=== PATIENT | male | born 1995 | race Caucasian/White ===

== ENCOUNTER → 2017-07-26 | Outpatient (CLI) | payer BC ==
--- NOTE | 2017-07-26 21:21 | MR ---
EXAMINATION TYPE: MR knee RT wo con DATE OF EXAM: 07/26/2017 COMPARISON: NONE HISTORY: Rt knee pain x 6 mos, possible fall/poor balance, cerebral palsy TECHNIQUE: Multiplanar, multisequence imaging of the right knee is performed without IV contrast. FINDINGS: MEDIAL MENISCUS: There is minimal increased signal within the posterior horn of the medial meniscus. Communication of the articular surface is not clearly identified. This can be compatible some type I internal derangement. LATERAL MENISCUS: Anterior and posterior horns are intact without tear. CRUCIATE LIGAMENTS: The anterior and posterior cruciate ligaments are intact and unremarkable. COLLATERAL LIGAMENTS: The medial collateral ligament and lateral collateral ligament complex are inta ct and unremarkable. EXTENSOR MECHANISM: Visualized quadriceps and patellar tendons are intact. The insertion of the obrien la is only partially visualized in the [id number]. EFFUSION: No significant suprapatellar joint effusion. POPLITEAL CYST: No popliteal/garcia cyst. TRICOMPARTMENT SPACES: Preserved CARTILAGE: Normal BONE MARROW SIGNAL: No focal abnormal marrow signal is appreciated. OTHER: No additional significant abnormality is appreciated. IMPRESSION: Mild increased signal within the substance of the posterior horn medial meniscus compatible some mild internal derangement or type I tear.
== END | disposition home or self-care (01) ==
LOC: RADMRIMAIN 16:35
PROVIDERS: ATTEND Orthopaedic Surgery
DX: M25.561 Pain in right knee (principal)

== ENCOUNTER → 2017-08-22 | Outpatient (CLI) | payer BC ==
[2017-08-22 16:11] LABS: Basophils # (A) 0.1 k/uL (0-0.2); Basophils % (A) 1 %; Eosinophils # (A) 0.7 k/uL (0-0.7); Eosinophils % (A) 8 %; HGB 15.9 gm/dL (13.0-17.5); Lymphocytes # (A) 3.2 k/uL (1.0-4.8); Lymphocytes % (A) 39 %; MCH 29.5 pg (25.0-35.0); MCHC 33.2 g/dL (31.0-37.0); MCV 88.9 fL (80.0-100.0); Mean Platelet Volume 6.5; Monocytes # (A) 0.6 k/uL (0-1.0); Monocytes % (A) 7 %; Neutrophils # (A) 3.5 k/uL (1.3-7.7); Neutrophils % (A) 43 %; Platelet Count 337 k/uL (150-450); RDW 12.2 % (11.5-15.5); WBC 8.2 k/uL (3.8-10.6)
== END | disposition home or self-care (01) ==
LOC: LABPAT 15:25
PROVIDERS: ATTEND Orthopaedic Surgery
DX: Z01.812 Encounter for preprocedural laboratory examination (principal); M23.91 Unspecified internal derangement of right knee
CPT/HCPCS: 36415; 85025

== ENCOUNTER → 2017-09-05 | Day surgery (SDC) | payer BC ==
[2017-09-04 09:57] VITALS: BMI 23.7
--- NOTE | 2017-09-04 16:57 | HP ---
HISTORY AND PHYSICAL REASON FOR ADMISSION: Surgery scheduled for 09/05/2017. HISTORY OF PRESENT ILLNESS: Tr Murdock is a 22-year-old patient seen with progressive right knee pain. Options regarding treatment were discussed with him. He elected to proceed with arthroscopy. Consent was obtained. PAST MEDICAL HISTORY: Asthma. PAST SURGICAL HISTORY: Extraction of wisdom teeth. MEDICATIONS: Daily medications include: Advil, albuterol, Ventolin inhaler. ALLERGIES: None known. SOCIAL HISTORY: Patient denies tobacco use. PHYSICAL EXAMINATION: Evaluation of right knee range of motion 0 to 130 degrees. Tenderness along the medial and lateral joint lines. Positive medial Karina's. Positive lateral Karina's. Ligaments are stable. Hip rotation without pain. Distal neurovascular exam intact. RADIOGRAPHS: Radiographs of the right knee revealed no osseous abnormality. MRI of the right knee revealed a medial meniscal tear. IMPRESSION: 1. Internal derangement, right knee with medial meniscal tear. 2. Asthma. PLAN: Right knee arthroscopy with partial meniscectomy and debridement. Surgery scheduled for 09/05/17. MMODL / IJN: [id number] /
[~2017-09-05] MED LIST: BUPIVACAINE (PF) 0.25% 30 ML VIAL INTRAARTIC ONE; DEXAMETHASONE SOD PHOSPHATE 10 MG/ML 1 ML VIAL IV ONE; HYDROcodone/APAP 5-325MG 1 EACH TAB PO ONE; KETAMINE 10 MG/ML 20 ML VIAL ONE; KETOROLAC 30 MG/ML 1 ML VIAL ONE; LACTATED RINGERS 1,000 ML IV ONE; LACTATED RINGERS 1,000 ML IV SCH; LIDOCAINE 1% 20 ML VIAL (10MG/ML) FOR IV START INTRADERMA PRN; LIDOCAINE 1% INJ 10MG/ML (20 ML MDV) ONE; MIDAZOLAM 2 MG/2 ML VIAL ONE; ONDANSETRON 4 MG/2 ML VIAL IVP ONE; ONDANSETRON 4 MG/2 ML VIAL ONE; PROPOFOL 10 MG/ML 20 ML VIAL IV ONE; SCOPOLAMINE 1.5MG/72HR PATCH TRANSDERM ONE; ceFAZolin IN SWFI 2 GM/20 ML SYRINGE IVP ONE; fentaNYL (PF) 50 MCG/ML 2 ML AMP IV PRN; fentaNYL (PF) 50 MCG/ML 2 ML AMP ONE
[2017-09-05 08:56] VITALS: RESP 16
[2017-09-05 10:28] VITALS: TEMP 97.4
--- NOTE | 2017-09-05 10:31 | P.OP ---
Date of Procedure: 09/05/17 Preoperative Diagnosis: Internal derangement right knee Postoperative Diagnosis: 1. Tear medial and lateral meniscus right knee 2. Reactive synovitis medial and suprapatellar compartments right knee Procedure(s) Performed: 1. Arthroscopic partial medial and lateral meniscectomy right knee 2. Arthroscopic partial synovectomy medial and suprapatellar compartments right knee Anesthesia: MONALISA, local Surgeon: Adam King Estimated Blood Loss (ml): 5 Pathology: none sent Condition: stable Disposition: PACU Indications for Procedure: 22-year-old patient seen with progressive right knee pain. After treatment options were discussed, he elected to proceed with arthroscopy. Operative Findings: see description of procedure Description of Procedure: Patient was taken to the operative suite. Patient underwent a general anesthetic by the department of anesthesia. Patient was given preoperative antibiotics. The right lower extremity was placed in a well-padded arthroscopic leg abrams. The right leg was prepped and draped in the normal sterile orthopedic fashion. A lateral parapatellar and suprapatellar incision was made. Trochars were inserted. Arthroscopy was initiated. Suprapatellar pouch revealed diffuse thick reactive synovitis. The patellofemoral joint appeared to articulate congruently. There was mild grade 1 chondromalacia changes. The scope was guided into the medial gutter. No loose bodies or plica were identified. The scope was then guided into the medial compartment. A medial parapatellar incision was made. Trocar inserted followed by probe. There was a radial tear posterior horn medial meniscus. There was reactive synovitis anteriorly. There was no chondromalacia. I performed a partial medial meniscectomy down to stable tissue. I performed a partial synovectomy. The residual meniscus was stable. Scope and probe were then guided into the intercondylar notch. Cruciates were identified, probed and found to be stable. The scope and probe were then guided into lateral compartment. There was a small radial tear mid body lateral meniscus. No chondromalacia or osteochondral tissue. No reactive synovitis. I performed a partial lateral meniscectomy. The residual meniscus was stable. The scope was in guided back into the suprapatellar compartment. I used the motorized shaver into the suprapatellar compartment. I performed a partial synovectomy. Shaver was removed. I took one more look on the entire knee, no residual debris. Instruments were now removed from the joint. The joint was infiltrated with .25 % Marcaine. Steri-Strips were applied to the portal sites. Sterile dressings were applied. The patient was placed into a RAJWINDER hose. No tourniquet was utilized. The patient was awakened, transferred to a bed and taken to recovery stable satisfactory condition.
[2017-09-05 11:15] VITALS: BP 103/58
[2017-09-05 11:36] VITALS: PULSE 100
== END | disposition home or self-care (01) ==
LOC: OR 08:18
PROVIDERS: ATTEND Orthopaedic Surgery
DX: M23.300 Other meniscus derangements, unspecified lateral meniscus, right knee (principal); M23.321 Other meniscus derangements, posterior horn of medial meniscus, right knee; J45.909 Unspecified asthma, uncomplicated; M65.861 Other synovitis and tenosynovitis, right lower leg; K21.9 Gastro-esophageal reflux disease without esophagitis; F41.9 Anxiety disorder, unspecified; Z79.51 Long term (current) use of inhaled steroids; Z79.52 Long term (current) use of systemic steroids; Z79.899 Other long term (current) drug therapy
CPT/HCPCS: 29880; J2250; J1100; J2405; J2001; J3010; J1885; J2704; J0690

== ENCOUNTER 2018-01-12 18:59 | Emergency (ER) | payer BC ==
[2018-01-12 19:05] VITALS: RESP 18
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
[2018-01-12 20:40] LABS: Amphetamine Screen,Urine Not Detected (NotDetected); Barbiturate Screen,Urine Not Detected (NotDetected); Benzodiazepines Screen,Urine Not Detected (NotDetected); Cocaine Screen,Urine Not Detected (NotDetected); Methadone Screen, Urine Not Detected (NotDetected); Opiate Screen,Urine Not Detected (NotDetected); Oxycodone Screen, Urine Not Detected (NotDetected); Phencyclidine Screen,Urine Not Detected (NotDetected); Tricyclic Antidepressant,Urine Not Detected (NotDetected); Urn Cannabinoid Scrn Not Detected (NotDetected)
[2018-01-12 21:20] VITALS: BP 134/75; PULSE 60; TEMP 98.9
== END 2018-01-12 21:18 | disposition home or self-care (01) ==
LOC: EC 18:59
DX: F32.9 Major depressive disorder, single episode, unspecified (principal); F43.20 Adjustment disorder, unspecified; R45.850 Homicidal ideations; R45.851 Suicidal ideations; J45.909 Unspecified asthma, uncomplicated; F41.9 Anxiety disorder, unspecified; Z79.51 Long term (current) use of inhaled steroids; Z91.010 Allergy to peanuts; Z91.09 Other allergy status, other than to drugs and biological substances
CPT/HCPCS: 80306; 82075; 99285

== ENCOUNTER 2018-04-22 20:21 | Inpatient (IN) | payer BC ==
[2018-04-22] MEDS ORDERED: IPRATROPIUM-ALBUTEROL 3 ML NEB INHALATION STA ×2 (20:38→21:46)
[2018-04-22] MEDS ORDERED: methylPREDNISolone SOD SUCCI 125 MG/2 ML VIAL IV STA (20:38)
[2018-04-22] MEDS ORDERED: SODIUM CHLORIDE 0.9% 1,000 ML IV ONE (20:57)
--- NOTE | 2018-04-22 20:57 | ED ---
SOB HPI - General Source: patient, family, RN notes reviewed, old records reviewed Mode of arrival: wheelchair Limitations: no limitations <Sandra Gutierrez - Last Filed: 04/22/18 22:46> <Concha Michael - Last Filed: 04/23/18 04:08> - General Chief Complaint: Shortness of Breath Stated Complaint: MARIMAR Time Seen by Provider: 04/22/18 20:37 - History of Present Illness Initial Comments: Patient is a 23-year-old male with a significant history of asthma, presents emergency department today for she went asthma exacerbation. Reports tingling for the past 4 hours. He did a breathing treatment times before leaving to come here. Patient states that he had asthma exacerbation 2 weeks ago and what has been off of steroids for the past 10 days. Patient reports that he has been hospitalized in the past for asthma exacerbations. Patient has ever been intubated her head use BiPAP. His crm solution architect is Dr. Boone. (Sandra Gutierrez ) - Related Data Home Medications Medication Instructions Recorded Confirmed Albuterol Sulfate [Ventolin HFA] 1 - 2 puff INHALATION RT-Q6H PRN 03/21/1404/22 Albuterol Nebulized [Ventolin 2.5 mg INHALATION RT-QID PRN 10/17/15 04/22/18 Nebulized] Fluticasone/Salmeterol [Advair 1 puff INHALATION RT-BID 09/05/17 04/22/18 250-50 Diskus] Citalopram Hydrobromide [CeleXA] 20 mg PO DAILY 04/22/18 04/22/18 Ibuprofen [Motrin Ib] 200 mg PO Q4HR PRN 04/22/18 04/22/18 lamoTRIgine [LaMICtal] 25 mg PO DAILY 04/22/18 04/22/18 Allergies Allergy/AdvReac Type Severity Reaction Status Date / Time peanut Allergy Severe Itching Verified 04/22/18 21:12 dog dander Allergy Unknown Verified 04/22/18 21:12 Review of Systems ROS Other: All systems not noted in ROS Statement are negative. <Sandra Gutierrez - Last Filed: 04/22/18 22:46> ROS Other: All systems not noted in ROS Statement are negative. <Concha Michael - Last Filed: 04/23/18 04:08> ROS Statement: Those systems with pertinent positive or pertinent negative responses have been documented in the HPI. Past Medical History Past Medical History: Asthma Additional Past Medical History / Comment(s): Very mild CP Left side History of Any Multi-Drug Resistant Organisms: None Reported Past Surgical History: Orthopedic Surgery Past Anesthesia/Blood Transfusion Reactions: No Reported Reaction Past Psychological History: Anxiety, Depression Smoking Status: Never smoker Past Alcohol Use History: None Reported Past Drug Use History: None Reported - Past Family History Mother Family Medical History: Asthma Father Family Medical History: No Reported History <Sandra Gutierrez - Last Filed: 04/22/18 22:46> General Exam Limitations: no limitations General appearance: alert, in no apparent distress Head exam: Present: atraumatic, normocephalic, normal inspection Eye exam: Present: normal appearance, PERRL, EOMI. Absent: scleral icterus, conjunctival injection, periorbital swelling ENT exam: Present: normal exam, mucous membranes moist Neck exam: Present: normal inspection. Absent: tenderness, meningismus, lymphadenopathy Respiratory exam: Present: wheezes, rhonchi, decreased breath sounds. Absent: normal lung sounds bilaterally, respiratory distress, rales, stridor Cardiovascular Exam: Present: normal rhythm, tachycardia, normal heart sounds. Absent: regular rate, systolic murmur, diastolic murmur, rubs, gallop, clicks GI/Abdominal exam: Present: soft, normal bowel sounds. Absent: distended, tenderness, guarding, rebound, rigid Extremities exam: Present: normal inspection, full ROM, normal capillary refill. Absent: tenderness, pedal edema, joint swelling, calf tenderness Back exam: Present: normal inspection Neurological exam: Present: alert, oriented X3, CN II-XII intact Psychiatric exam: Present: normal affect, normal mood Skin exam: Present: warm, dry, intact, normal color. Absent: rash <Sandra Gutierrez - Last Filed: 04/22/18 22:46> <Concha Michael - Last Filed: 04/23/18 04:08> - General Exam Comments Initial Comments: 23-year-old male. Patient appears in no significant distress. (Sandra Gutierrez) Vital Signs 04/22/18 04/22/18 04/22/18 20:32 20:50 21:01 Temperature 98.3 F Pulse Rate 118 H 98 109 H Pulse Rate [ Right] Respiratory 28 H Rate Blood Pressure 134/89 Blood Pressure [Right Arm] O2 Sat by Pulse 95 Oximetry 04/22/18 04/22/18 04/22/18 21:53 22:09 22:40 Temperature Pulse Rate 104 H 102 H 88 Pulse Rate [ Right] Respiratory 17 Rate Blood Pressure 111/94 Blood Pressure [Right Arm] O2 Sat by Pulse 96 Oximetry 04/23/18 00:22 Temperature Pulse Rate Pulse Rate [ 86 Right] Respiratory 18 Rate Blood Pressure Blood Pressure 125/69 [Right Arm] O2 Sat by Pulse 96 Oximetry Medical Decision Making - Lab Data Result diagrams: 04/22/18 20:32 04/22/18 20:32 - Radiology Data Radiology results: report reviewed <Sandra Gutierrez - Last Filed: 04/22/18 22:46> - Lab Data Result diagrams: 04/22/18 20:32 04/22/18 20:32 <Concha Michael - Last Filed: 04/23/18 04:08> - Medical Decision Making Patient is a 23-year-old male presents emergency department today with chief complaint of asthma exacerbation. He was recently treated for asthma exacerbation 2 week ago and placed on steroids. He's been off them for a week. Patient at this time and has significant wheezing on exam. Start on oxygen, given double DuoNeb treatment IV fluids and steroids. Patient was given a double DuoNeb treatment and continued has significant wheezing. There are treatment was ordered and Patient continues to have wheezing. He has been hospitalized in the past. Patient will be given magnesium. Head is similar to admit the Patient with consults his crm solution architect. He'll be admitted to Dr. ochoa. Dr. Michael discussed case with Dr. ochoa. (Sandra Gutierrez) I personally saw and examined the patient. I reviewed and agree with the mid- level provider findings including all diagnostic interpretations and treatment plans as written unless otherwise stated. I was present for morgan portions of any procedures performed. (Concha Michael) - Lab Data Lab Results 04/22/18 04/22/18 Range/Units 20:32 20:32 WBC 9.2 (3.8-10.6) k/uL RBC 5.19 (4.30-5.90) m/uL Hgb 16.0 (13.0-17.5) gm/dL Hct 47.1 (39.0-53.0) % MCV 90.9 (80.0-100.0) fL MCH 30.8 (25.0-35.0) pg MCHC 33.9 (31.0-37.0) g/dL RDW 12.6 (11.5-15.5) % Plt Count 291 (150-450) k/uL Neutrophils % 35 % Lymphocytes % 38 % Monocytes % 7 % Eosinophils % 17 % Basophils % 1 % Neutrophils # 3.2 (1.3-7.7) k/uL Lymphocytes # 3.5 (1.0-4.8) k/uL Monocytes # 0.7 (0-1.0) k/uL Eosinophils # 1.6 H (0-0.7) k/uL Basophils # 0.1 (0-0.2) k/uL Sodium 142 (137-145) mmol/L Potassium 4.3 (3.5-5.1) mmol/L Chloride 108 H (98-107) mmol/L Carbon Dioxide 23 (22-30) mmol/L Anion Gap 11 mmol/L BUN 13 (9-20) mg/dL Creatinine 0.71 (0.66-1.25) mg/dL Est GFR (CKD-EPI)AfAm >90 (>60 ml/min/1.73 sqM) Est GFR (CKD-EPI)NonAf >90 (>60 ml/min/1.73 sqM) Glucose 106 H (74-99) mg/dL Calcium 9.4 (8.4-10.2) mg/dL - Radiology Data Normal chest x-ray (Sandra Gutierrez) Disposition Is patient prescribed a controlled substance at d/c from ED?: No Time of Disposition: 22:47 <Sandra Gutierrez - Last Filed: 04/22/18 22:46> <Concha Michael - Last Filed: 04/23/18 04:08> Clinical Impression: Asthma with exacerbation, Hypoxemia, Sinus tachycardia Disposition: ADMITTED IP TO THIS HOSP Condition: Stable
[2018-04-22 21:03] LABS: Basophils # (A) 0.1 k/uL (0-0.2); Basophils % (A) 1 %; Eosinophils # (A) 1.6 k/uL (0-0.7); Eosinophils % (A) 17 %; HCT 47.1 % (39.0-53.0); Lymphocytes # (A) 3.5 k/uL (1.0-4.8); Lymphocytes % (A) 38 %; MCH 30.8 pg (25.0-35.0); MCHC 33.9 g/dL (31.0-37.0); MCV 90.9 fL (80.0-100.0); Monocytes # (A) 0.7 k/uL (0-1.0); Monocytes % (A) 7 %; Neutrophils # (A) 3.2 k/uL (1.3-7.7); Neutrophils % (A) 35 %; Platelet Count 291 k/uL (150-450); RBC 5.19 m/uL (4.30-5.90); RDW 12.6 % (11.5-15.5); WBC 9.2 k/uL (3.8-10.6)
[2018-04-22 21:19] LABS: Anion Gap 11 mmol/L; Blood Urea Nitrogen 13 mg/dL (9-20); Calcium 9.4 mg/dL (8.4-10.2); Carbon Dioxide 23 mmol/L (22-30); Chloride 108 mmol/L (98-107); Glucose 106 mg/dL (74-99); Potassium 4.3 mmol/L (3.5-5.1); Sodium 142 mmol/L (137-145)
--- NOTE | 2018-04-22 22:06 | XR ---
EXAMINATION: XR chest 2V DATE AND TIME: 04/22/2018 9:12 PM CLINICAL INDICATION: difficulty breathing TECHNIQUE: PA and lateral COMPARISON: 10/18/2015 FINDINGS: The lungs are clear. The pleural spaces are negative. The cardiac silhouette is not enlarged. The remainder of the mediastinal silhouette is unremarkable. The skeletal structures and soft tissues are negative for acute findings. IMPRESSION: NO ACUTE PROCESS.
[2018-04-22] MEDS ORDERED: MAGNESIUM SULFATE-D5W PMX 1 GM in DEXTROSE/WATER 1 100ML.BAG IVPB STA (22:50)
[2018-04-22] MEDS ORDERED: IBUPROFEN 400 MG TAB PO PRN (22:52)
[2018-04-23] MEDS: methylPREDNISolone SOD SUCCI 125 MG/2 ML VIAL IV SCH ×5 (01:19→23:35)
--- NOTE | 2018-04-23 07:54 | P.HPIM ---
History of Present Illness This is a pleasant 23 years old male with past medical history of asthma since and anxiety/depression on psychiatric medication including Lamictal with no history of seizure. He presents with progressive dyspnea on and off over the last 2 weeks which got like really bad yesterday for 4 hours with no associated chest pain or coughing. Patient inhalers could not control his symptoms so he decided to come to the emergency room. Patient most likely found to have acute asthma exacerbation. And he was started on therapy including steroids. This morning he looks better. Patient is not on home oxygen and has not steroid dependent. And he follows up with Dr. Boone as an outpatient. Review of Systems CONSTITUTIONAL: No fever, no malaise, no fatigue. HEENT: No recent visual problems or hearing problems. Denied any sore throat. CARDIOVASCULAR: No orthopnea, PND, no palpitations, no syncope. PULMONARY: No shortness of breath, no cough, no hemoptysis. GASTROINTESTINAL: No diarrhea, no nausea, no vomiting, no abdominal pain. Normoactive bowel sounds. NEUROLOGICAL: No headaches, no weakness, no numbness. HEMATOLOGICAL: Denies any bleeding or petechiae. GENITOURINARY: Denies any burning micturition, frequency, or urgency. MUSCULOSKELETAL/RHEUMATOLOGICAL: Denies any joint pain, swelling, or any muscle pain. ENDOCRINE: Denies any polyuria or polydipsia. GENERAL: The patient is alert and oriented x3, not in any acute distress. Well developed, well nourished. HEENT: Pupils are round and equally reacting to light. EOMI. No scleral icterus. No conjunctival pallor. Normocephalic, atraumatic. No pharyngeal erythema. No thyromegaly. CARDIOVASCULAR: S1 and S2 present. No murmurs, rubs, or gallops. -PULMONARY: Chest is clear to auscultation, no crackles. bilateral scattered wheezing with prolonged expiration ABDOMEN: Soft, nontender, nondistended, normoactive bowel sounds. No palpable organomegaly. MUSCULOSKELETAL: No joint swelling or deformity. EXTREMITIES: No cyanosis, clubbing, or pedal edema. NEUROLOGICAL: Gross neurological examination did not reveal any focal deficits. SKIN: No rashes. Past Medical History Past Medical History: Asthma Additional Past Medical History / Comment(s): Very mild CP Left side History of Any Multi-Drug Resistant Organisms: None Reported Past Surgical History: Orthopedic Surgery Additional Past Surgical History / Comment(s): R knee surgery Past Anesthesia/Blood Transfusion Reactions: No Reported Reaction Past Psychological History: Anxiety, Depression Smoking Status: Never smoker Past Alcohol Use History: None Reported Past Drug Use History: None Reported - Past Family History Mother Family Medical History: Asthma Father Family Medical History: No Reported History Medications and Allergies Home Medications Medication Instructions Recorded Confirmed Type Albuterol Sulfate [Ventolin HFA] 1 - 2 puff INHALATION RT-Q6H PRN 03/21/1404/22 History Albuterol Nebulized [Ventolin 2.5 mg INHALATION RT-QID PRN 10/17/15 04/22/18 History Nebulized] Fluticasone/Salmeterol [Advair 1 puff INHALATION RT-BID 09/05/17 04/22/18 History 250-50 Diskus] Citalopram Hydrobromide [CeleXA] 20 mg PO DAILY 04/22/18 04/22/18 History Ibuprofen [Motrin Ib] 200 mg PO Q4HR PRN 04/22/18 04/22/18 History lamoTRIgine [LaMICtal] 25 mg PO DAILY 04/22/18 04/22/18 History Allergies Allergy/AdvReac Type Severity Reaction Status Date / Time peanut Allergy Severe Itching Verified 04/22/18 21:12 dog dander Allergy Unknown Verified 04/22/18 21:12 Physical Exam Vitals: Vital Signs Temp Pulse Pulse Resp BP BP Pulse Ox 04/23/18 06:05 97.5 F L 78 18 116/55 96 04/23/18 00:22 86 18 125/69 96 04/22/18 22:40 88 17 111/94 96 04/22/18 22:09 102 H 04/22/18 21:53 104 H 04/22/18 21:01 109 H 04/22/18 20:50 98 04/22/18 20:32 98.3 F 118 H 28 H 134/89 95 Intake and Output 04/22/18 04/23/18 04/23/18 22:59 06:59 14:59 Other: # Voids 2 Weight 79.379 kg Results CBC & Chem 7: 04/22/18 20:32 04/22/18 20:32 Labs: Abnormal Lab Results - Last 24 Hours (Table) 04/22/18 04/22/18 Range/Units 20:32 20:32 Eosinophils # 1.6 H (0-0.7) k/uL Chloride 108 H (98-107) mmol/L Glucose 106 H (74-99) mg/dL Thrombosis Risk Factor Assmnt - Choose All That Apply Any of the Below Risk Factors Present?: No Other Risk Factors: No Other congenital or acquired thrombophilia - If yes, enter type in comment: No Thrombosis Risk Factor Assessment Level: Very Low Risk Assessment and Plan Assessment: Acute asthma exacerbation Anxiety Plan: This is a pleasant 23 years old male who presents with asthma exacerbation. Continue with steroids and oxygen therapy. Call pulmonary consult. Labs and medication were resumed. Continue same treatment. Continue with symptomatic treatment. Resume home medication. Monitor lytes and vitals. DVT and GI prophylaxis. Further recommendationsof the clinical course of the patient DVT prophylaxis: Subcutaneous heparin GI Prophylaxis: Pepcid Prognosis is guarded
[2018-04-23] MEDS ORDERED: NON-FORMULARY DRUG (Fluticasone/Salmeterol [Advair 250-50 Diskus] 1 PUFF) INHALATION SCH (08:00)
[2018-04-23] MEDS: HEPARIN SODIUM,PORCINE 5,000 UNIT/ML 1 ML VIAL SQ SCH ×2 (08:15→20:19)
[2018-04-23] MEDS: guaiFENesin 600 MG TABLET.ER PO SCH ×2 (08:16→20:18)
[2018-04-23] MEDS: CITALOPRAM HYDROBROMIDE 20 MG TAB PO SCH (08:16)
[2018-04-23] MEDS: lamoTRIgine 25 MG TAB PO SCH (08:16)
[2018-04-23] MEDS: IPRATROPIUM-ALBUTEROL 3 ML NEB INHALATION PRN ×3 (08:30→20:43)
[2018-04-23] MEDS: SYMBICORT 80-4.5 MCG INHALER INHALATION SCH ×2 (08:30→20:44)
[2018-04-23] MEDS ORDERED: FAMOTIDINE 20 MG/2 ML VIAL IV SCH (09:00)
--- NOTE | 2018-04-23 13:25 | P.CNPUL ---
History of Present Illness Consult date: 04/23/18 Reason for consult: dyspnea, cough, asthma Chief complaint: Acute asthma exacerbation History of present illness: Pulmonary consult dated 04/23/2018 23-year-old male who I see in my office. He has a history of mild cerebral palsy and chronic bronchial asthma. His asthma is usually well controlled. Over the last couple days, he states that his asthma has gotten much worse. He complains of shortness of breath chest tightness wheezing cough and chest congestion. In addition, he is coughing up a small amount of clear to white phlegm. No fever chills chest pain chest discomfort and nausea vomiting or diarrhea. I see him about every 6 months in the office. He was hospitalized at least one previous time for his asthma. He states he is using his medications as prescribed. He does not skip medications are skipped doses. He apparently started using a short acting beta agonist very frequently which still limiting needed to come in to be seen. He is feeling better today than he was yesterday. His only major medical problems include asthma, mild cerebral palsy, anxiety and depression. He is a lifelong nonsmoker. Review of Systems A 14 point review of system is positive for shortness of breath tightness wheezing cough and minimal phlegm production. Past Medical History Past Medical History: Asthma Additional Past Medical History / Comment(s): Very mild CP Left side History of Any Multi-Drug Resistant Organisms: None Reported Past Surgical History: Orthopedic Surgery Additional Past Surgical History / Comment(s): R knee surgery Past Anesthesia/Blood Transfusion Reactions: No Reported Reaction Past Psychological History: Anxiety, Depression Smoking Status: Never smoker Past Alcohol Use History: None Reported Past Drug Use History: None Reported - Past Family History Mother Family Medical History: Asthma Father Family Medical History: No Reported History Medications and Allergies Home Medications Medication Instructions Recorded Confirmed Type Albuterol Sulfate [Ventolin HFA] 1 - 2 puff INHALATION RT-Q6H PRN 03/21/1404/22 History Albuterol Nebulized [Ventolin 2.5 mg INHALATION RT-QID PRN 10/17/15 04/22/18 History Nebulized] Fluticasone/Salmeterol [Advair 1 puff INHALATION RT-BID 09/05/17 04/22/18 History 250-50 Diskus] Citalopram Hydrobromide [CeleXA] 20 mg PO DAILY 04/22/18 04/22/18 History Ibuprofen [Motrin Ib] 200 mg PO Q4HR PRN 04/22/18 04/22/18 History lamoTRIgine [LaMICtal] 25 mg PO DAILY 04/22/18 04/22/18 History Allergies Allergy/AdvReac Type Severity Reaction Status Date / Time peanut Allergy Severe Itching Verified 04/22/18 21:12 dog dander Allergy Unknown Verified 04/22/18 21:12 Physical Exam Osteopathic Statement: *. No significant issues noted on an osteopathic structural exam other than those noted in the History and Physical/Consult. Vitals: Vital Signs Temp Pulse Pulse Resp BP BP Pulse Ox 04/23/18 12:15 104 H 04/23/18 12:03 100 04/23/18 08:50 18 04/23/18 08:47 102 H 04/23/18 08:33 94 95 04/23/18 06:05 97.5 F L 78 18 116/55 96 04/23/18 00:22 86 18 125/69 96 04/22/18 22:40 88 17 111/94 96 04/22/18 22:09 102 H 04/22/18 21:53 104 H 04/22/18 21:01 109 H 04/22/18 20:50 98 04/22/18 20:32 98.3 F 118 H 28 H 134/89 95 Intake and Output 04/22/18 04/23/18 04/23/18 22:59 06:59 14:59 Other: Voiding Method Toilet # Voids 2 Weight 79.379 kg No acute distress, oriented 3. Nasal O2 in place. No audible wheezing. No use of accessory muscles. HEENT examination is grossly unremarkable. Mucous membranes are moist. No oral lesions. Neck supple. Full range of motion. No adenopathy thyromegaly or neck vein distention. Cardiovascular examination reveals regular rhythm rate. S1-S2 normal. No S3 or S4. No discernible murmur noted. Lungs reveal bilateral expiratory wheezes. A few scattered rhonchi. No crackles. Breath sounds equal bilaterally. There is prolongation on forced maneuver.. Abdomen soft bowel sounds are heard. No masses or tenderness. Extremities are intact. No cyanosis clubbing or edema. Skin is without rash or lesion. Neurologic examination is brief but nonfocal. Results - Laboratory Findings CBC and BMP: 04/22/18 20:32 04/22/18 20:32 Abnormal lab findings: Abnormal Labs 04/22/18 04/22/18 20:32 20:32 Eosinophils # 1.6 H Chloride 108 H Glucose 106 H - Diagnostic Findings Chest x-ray: report reviewed, image reviewed (Chest x-ray, labs and medications are reviewed.) Assessment and Plan Assessment: Assessment Acute exacerbation of moderate/persistent chronic bronchial asthma, likely triggered by an upper respiratory tract infection and/or the rather History of mild cerebral palsy History of anxiety/depression Plan: Plan dated 04/23/2018 The patient's medications are reviewed. He should be on DuoNeb 4 times a day and when necessary. In addition, he needs a long-acting beta agonist and inhaled corticosteroid. In addition, the patient should be on systemic corticosteroids as well as oral antibiotics. The patient could likely be considered for discharge later today or tomorrow. He should follow with me in the office. Labs x-rays a medications are reviewed. Chest x-ray shows no acute infiltrate. White count 9.2 hemoglobin and hematocrit and platelet count all normal. Sodium and potassium are normal. Chlorides 108, with the rest of the comprehensive metabolic profile being normal. Time with Patient: Greater than 30
[2018-04-23] MEDS: FAMOTIDINE 20 MG TAB PO SCH (20:46)
[2018-04-24] MEDS: methylPREDNISolone SOD SUCCI 125 MG/2 ML VIAL IV SCH ×2 (05:59→12:34)
[2018-04-24 07:37] VITALS: BP 112/55; RESP 20; TEMP 98.3
[2018-04-24] MEDS: SYMBICORT 80-4.5 MCG INHALER INHALATION SCH (07:38)
[2018-04-24] MEDS: IPRATROPIUM-ALBUTEROL 3 ML NEB INHALATION PRN ×2 (07:38→11:37)
[2018-04-24 07:42] VITALS: PULSE 100
[2018-04-24] MEDS: guaiFENesin 600 MG TABLET.ER PO SCH (08:45)
[2018-04-24] MEDS: HEPARIN SODIUM,PORCINE 5,000 UNIT/ML 1 ML VIAL SQ SCH (08:45)
[2018-04-24] MEDS: FAMOTIDINE 20 MG TAB PO SCH (08:45)
[2018-04-24] MEDS: CITALOPRAM HYDROBROMIDE 20 MG TAB PO SCH (08:45)
[2018-04-24] MEDS: lamoTRIgine 25 MG TAB PO SCH (08:45)
[2018-04-24] MEDS ORDERED: AZITHROMYCIN 500 MG TAB PO SCH (09:00)
--- NOTE | 2018-04-24 10:08 | P.PN ---
Subjective Progress Note Date: 04/24/18 Principal diagnosis: Acute exacerbation of moderate/persistent chronic bronchial asthma Pulmonary consult dated 04/23/2018 23-year-old male who I see in my office. He has a history of mild cerebral palsy and chronic bronchial asthma. His asthma is usually well controlled. Over the last couple days, he states that his asthma has gotten much worse. He complains of shortness of breath chest tightness wheezing cough and chest congestion. In addition, he is coughing up a small amount of clear to white phlegm. No fever chills chest pain chest discomfort and nausea vomiting or diarrhea. I see him about every 6 months in the office. He was hospitalized at least one previous time for his asthma. He states he is using his medications as prescribed. He does not skip medications are skipped doses. He apparently started using a short acting beta agonist very frequently which still limiting needed to come in to be seen. He is feeling better today than he was yesterday. His only major medical problems include asthma, mild cerebral palsy, anxiety and depression. He is a lifelong nonsmoker. On 04/24/2018 patient seen in follow-up. Patient is feeling much better today, his lung sounds are essentially clear, no wheezes, no rhonchi, no rales. Apparently on 2 L per nasal cannula, his pulse ox is 94%, he is afebrile, vital signs are stable, patient has responded quite favorably and fast to systemic IV steroids, Symbicort, nebulized bronchodilators, and Zithromax. No chest tightness, no wheezes, no fever, no chills. Dissipate discharge home today. Objective - Vital Signs Vital signs: Vital Signs Temp 98.3 F 04/24/18 07:34 Pulse 100 04/24/18 07:55 Resp 20 04/24/18 07:38 BP 112/55 04/24/18 07:34 Pulse Ox 94 L 04/24/18 07:34 Intake & Output 04/23/18 04/24/18 04/24/18 18:59 06:59 18:59 Intake Total 500 Balance 500 Intake: Oral 500 Other: Voiding Method Toilet Toilet # Voids 2 3 2 - Exam No acute distress, oriented 3. Nasal O2 in place. No audible wheezing. No use of accessory muscles. HEENT examination is grossly unremarkable. Mucous membranes are moist. No oral lesions. Neck supple. Full range of motion. No adenopathy thyromegaly or neck vein distention. Cardiovascular examination reveals regular rhythm rate. S1-S2 normal. No S3 or S4. No discernible murmur noted. Lungs reveal clear breath sounds. No crackles. Breath sounds equal bilaterally. Abdomen soft bowel sounds are heard. No masses or tenderness. Extremities are intact. No cyanosis clubbing or edema. Skin is without rash or lesion. Neurologic examination is brief but nonfocal. - Labs CBC & Chem 7: 04/22/18 20:32 04/22/18 20:32 Assessment and Plan Plan: Acute exacerbation of moderate/persistent chronic bronchial asthma, likely triggered by an upper respiratory tract infection and/or the rather History of mild cerebral palsy History of anxiety/depression Plan: Patient is improving, no chest tightness, no worsening shortness of breath, lung sounds are essentially clear to auscultation, no fever, no chills, no cough. From pulmonary perspective patient is stable for discharge home today on prednisone taper, short course of outpatient antibiotic therapy, and his maintenance inhalers. Follow up with Dr. Boone in the office in one week I performed a history & physical examination of the patient and discussed their management with my nurse practitioner, Brenda Cleaning. I reviewed the nurse practitioner's note and agree with the documented findings and plan of care. Lung sounds are positive for clear breath. The findings and the impression was discussed with the patient. I attest to the documentation by the nurse practitioner. Time with Patient: Less than 30
--- NOTE | 2018-04-24 19:16 | P.DS ---
Providers Date of admission: 04/22/18 22:20 Attending physician: Stalin Gonzalez Consults: 04/22/18 22:50 Consult Physician Stat Consulting Provider: Laron Boone Reason/Comments: Asthma exacerbation Do you want consulting provider notified?: Yes Primary care physician: Wilbert Westerly Hospital Course: This is a pleasant 23 years old male with past medical history of asthma since and anxiety/depression on psychiatric medication including Lamictal with no history of seizure. He presents with progressive dyspnea on and off over the last 2 weeks which got like really bad yesterday for 4 hours with no associated chest pain or coughing. Patient inhalers could not control his symptoms so he decided to come to the emergency room. Patient most likely found to have acute asthma exacerbation. And he was started on therapy including steroids, breathing treatment and oxygen. Patient has been evaluated by pulmonary team who admitted antibiotic and updated his medication. Patient showed interval improvement and on the day of discharge his dyspnea was minimal. Denies chest pain and his cough is improving. Patient himself felt he is ready to be discharged. Patient was cleared by pulmonary team for discharge. Problems and management plan was discussed with the patient and he verbalized understanding and acceptance. Patient is found stable and can be discharged home however he needs follow-up as an outpatient. he agrees to follow up as outpt with pulmonary and pcp. pt was instructed that his 6 cats he has at home may play a significant role in his asthma exacerbation and advised to stay away from them. physical exam Gen.: Patient alert awake and oriented X 3, NOT IN DISTRESS CVS: s1-s2, RRR, no murmur CHEST:bilateral CTA, no wheezing or crepitation Abdomen: Soft, no tenderness, no distention, positive bowel sounds Extremities: No leg edema or induration Time spent more than 35 minutes Patient Condition at Discharge: Stable Plan - Discharge Summary Discharge Rx Participant: No New Discharge Prescriptions: New Doxycycline [Vibramycin] 100 mg PO BID 4 Days #8 capsule Famotidine [Pepcid] 20 mg PO BID #14 tab guaiFENesin [Mucinex] 1,200 mg PO Q12HR 3 Days #6 tablet.er predniSONE 10 mg PO DIRECTED #21 tab Continue Albuterol Sulfate [Ventolin HFA] 1 - 2 puff INHALATION RT-Q6H PRN PRN Reason: Shortness Of Breath Albuterol Nebulized [Ventolin Nebulized] 2.5 mg INHALATION RT-QID PRN PRN Reason: Shortness Of Breath Fluticasone/Salmeterol [Advair 250-50 Diskus] 1 puff INHALATION RT-BID lamoTRIgine [LaMICtal] 25 mg PO DAILY Citalopram Hydrobromide [CeleXA] 20 mg PO DAILY Discontinued Ibuprofen [Motrin Ib] 200 mg PO Q4HR PRN PRN Reason: Pain Discharge Medication List Albuterol Sulfate [Ventolin HFA] 1 - 2 puff INHALATION RT-Q6H PRN 03/21/14 [ History] Albuterol Nebulized [Ventolin Nebulized] 2.5 mg INHALATION RT-QID PRN 10/17/15 [ History] Fluticasone/Salmeterol [Advair 250-50 Diskus] 1 puff INHALATION RT-BID 09/05/17 [History] Citalopram Hydrobromide [CeleXA] 20 mg PO DAILY 04/22/18 [History] lamoTRIgine [LaMICtal] 25 mg PO DAILY 04/22/18 [History] Doxycycline [Vibramycin] 100 mg PO BID 4 Days #8 capsule 04/24/18 [Rx] Famotidine [Pepcid] 20 mg PO BID #14 tab 04/24/18 [Rx] guaiFENesin [Mucinex] 1,200 mg PO Q12HR 3 Days #6 tablet.er 04/24/18 [Rx] predniSONE 10 mg PO DIRECTED #21 tab 04/24/18 [Rx] Follow up Appointment(s)/Referral(s): Wilbert Romeo MD [Primary Care Provider] - 04/28/18 2:20 pm Laron Boone DO [Doctor of Osteopathic Medicine] - 1 Week (office closed at time od d/c. please call to make appt) Activity/Diet/Wound Care/Special Instructions: resume your previous diet activity as tolerated Discharge Disposition: HOME SELF-CARE
== END 2018-04-24 13:12 | disposition home or self-care (01) | DRG 203 ==
LOC: EC 20:21 → 4MS4W 22:20
PROVIDERS: ADMIT Hospitalist; ATTEND Hospitalist
DX: J45.41 Moderate persistent asthma with (acute) exacerbation (principal); F32.9 Major depressive disorder, single episode, unspecified; F41.9 Anxiety disorder, unspecified; G80.9 Cerebral palsy, unspecified; R09.02 Hypoxemia; Z79.899 Other long term (current) drug therapy; Z82.5 Family history of asthma and other chronic lower respiratory diseases; Z79.1 Long term (current) use of non-steroidal anti-inflammatories (NSAID); Z91.010 Allergy to peanuts; Z91.048 Other nonmedicinal substance allergy status
CPT/HCPCS: 36415; 71046; 80048; 85025; 94640; 94760; 96361; 96365; 96375; 99285

== ENCOUNTER 2018-05-05 01:57 | Emergency (ER) | payer BC ==
[2018-05-05] MEDS ORDERED: IPRATROPIUM-ALBUTEROL 3 ML NEB INHALATION STA ×2 (02:15→03:00)
--- NOTE | 2018-05-05 02:15 | ED ---
SOB HPI - General Chief Complaint: Shortness of Breath Stated Complaint: MARIMAR, Asthma Time Seen by Provider: 05/05/18 02:14 Source: patient Mode of arrival: wheelchair Limitations: no limitations - History of Present Illness Initial Comments: Marni is a 23-year-old male with a history of very severe asthma with a recent admission to the hospital for asthma exacerbation who returns today for asthma exacerbation. Patient reports that he has had wheezing and tightness which improves only transiently with his home nebulizer. Patient reports he's had persistent shortness of breath throughout the afternoon, she didn't want to wait to come to the ER but he did last time because he wanted to avoid admission. Patient denies any associated fevers, chills nausea or vomiting. He reports a wheezy nonproductive cough which is similar to previous episodes of asthma exacerbation. He's been compliant with his home medications he has followed with his parimutuel clerk. - Related Data Home Medications Medication Instructions Recorded Confirmed Albuterol Sulfate [Ventolin HFA] 1 - 2 puff INHALATION RT-Q6H PRN 03/21/1404/22 Albuterol Nebulized [Ventolin 2.5 mg INHALATION RT-QID PRN 10/17/15 04/22/18 Nebulized] Fluticasone/Salmeterol [Advair 1 puff INHALATION RT-BID 09/05/17 04/22/18 250-50 Diskus] Citalopram Hydrobromide [CeleXA] 20 mg PO DAILY 04/22/18 04/22/18 lamoTRIgine [LaMICtal] 25 mg PO DAILY 04/22/18 04/22/18 Previous Rx's Medication Instructions Recorded Doxycycline [Vibramycin] 100 mg PO BID 4 Days #8 capsule 04/24/18 Famotidine [Pepcid] 20 mg PO BID #14 tab 04/24/18 guaiFENesin [Mucinex] 1,200 mg PO Q12HR 3 Days #6 04/24/18 tablet.er predniSONE 10 mg PO DIRECTED #21 tab 04/24/18 Allergies Allergy/AdvReac Type Severity Reaction Status Date / Time peanut Allergy Severe Itching Verified 04/22/18 21:12 dog dander Allergy Unknown Verified 04/22/18 21:12 Review of Systems ROS Statement: Those systems with pertinent positive or pertinent negative responses have been documented in the HPI. ROS Other: All systems not noted in ROS Statement are negative. Past Medical History Past Medical History: Asthma History of Any Multi-Drug Resistant Organisms: None Reported Past Surgical History: Orthopedic Surgery Additional Past Surgical History / Comment(s): R knee surgery Past Anesthesia/Blood Transfusion Reactions: No Reported Reaction Past Psychological History: Anxiety, Depression Smoking Status: Never smoker Past Alcohol Use History: None Reported Past Drug Use History: None Reported - Past Family History Mother Family Medical History: Asthma Father Family Medical History: No Reported History General Exam - General Exam Comments Initial Comments: Physical Exam GENERAL: Patient is well-developed and well-nourished. Patient mild respiratory distress upon arrival HENT: Normocephalic, Atraumatic. EYES: PERRL, EOMI PULMONARY: Tachypnea, increased work of breathing, wheezing in all lung may CARDIOVASCULAR: Tachycardic regular ABDOMEN: Soft and nontender with normal bowel sounds. SKIN: Skin is clear with no lesions or rashes and otherwise unremarkable. : Deferred NEUROLOGIC: Patient is alert and oriented x3. Moving all extremities spontaneously MUSCULOSKELETAL: Normal extremities with adequate strength and full range of motion. No lower extremity swelling or edema. No calf tenderness. PSYCHIATRIC: Normal psychiatric evaluation. Limitations: no limitations Limitations: no limitations Course Vital Signs 05/05/18 05/05/18 05/05/18 01:59 02:18 02:25 Temperature 98.4 F Pulse Rate 102 H 84 82 Respiratory 28 H 24 22 Rate Blood Pressure O2 Sat by Pulse 94 L Oximetry 05/05/18 05/05/18 05/05/18 04:50 05:02 05:52 Temperature 97.9 F Pulse Rate 80 83 98 Respiratory 20 20 20 Rate Blood Pressure 128/74 O2 Sat by Pulse 99 Oximetry Medical Decision Making - Medical Decision Making Patient was seen and evaluated history is obtained from the patient review of medical record as well as recall of my previous interactions with this patient with a history of severe asthma, coming in today for persistent wheezing despite using his nebulizers and rescue inhalers as prescribed Patient in mild respiratory distress is having an asthma exacerbation Labs and imaging were ordered Patient was reevaluated after DuoNeb's and is feeling quite well, and is stable for discharge home patient agrees and would like to be discharged Turn parameters were discussed, patient will follow up with his parimutuel clerk, all questions pertaining to care answered and patient discharged home in stable condition - Lab Data Result diagrams: 05/05/18 03:31 05/05/18 03:31 Lab Results 05/05/18 05/05/18 Range/Units 03:31 03:31 WBC 15.6 H (3.8-10.6) k/uL RBC 5.40 (4.30-5.90) m/uL Hgb 16.8 (13.0-17.5) gm/dL Hct 48.5 (39.0-53.0) % MCV 89.9 (80.0-100.0) fL MCH 31.1 (25.0-35.0) pg MCHC 34.6 (31.0-37.0) g/dL RDW 12.5 (11.5-15.5) % Plt Count 359 (150-450) k/uL Neutrophils % 66 % Lymphocytes % 21 % Monocytes % 6 % Eosinophils % 6 % Basophils % 0 % Neutrophils # 10.3 H (1.3-7.7) k/uL Lymphocytes # 3.2 (1.0-4.8) k/uL Monocytes # 0.9 (0-1.0) k/uL Eosinophils # 1.0 H (0-0.7) k/uL Basophils # 0.1 (0-0.2) k/uL Sodium 138 (137-145) mmol/L Potassium 4.8 (3.5-5.1) mmol/L Chloride 104 (98-107) mmol/L Carbon Dioxide 23 (22-30) mmol/L Anion Gap 11 mmol/L BUN 16 (9-20) mg/dL Creatinine 0.74 (0.66-1.25) mg/dL Est GFR (CKD-EPI)AfAm >90 (>60 ml/min/1.73 sqM) Est GFR (CKD-EPI)NonAf >90 (>60 ml/min/1.73 sqM) Glucose 118 H (74-99) mg/dL Calcium 10.2 (8.4-10.2) mg/dL Magnesium 2.0 (1.6-2.3) mg/dL Total Bilirubin 0.5 (0.2-1.3) mg/dL AST 29 (17-59) U/L ALT 37 (21-72) U/L Alkaline Phosphatase 50 (38-126) U/L Total Protein 7.6 (6.3-8.2) g/dL Albumin 4.6 (3.5-5.0) g/dL Disposition Clinical Impression: Asthma, Asthma with exacerbation Disposition: HOME SELF-CARE Condition: Stable Instructions: Asthma (ED) Is patient prescribed a controlled substance at d/c from ED?: No Referrals: Wilbert Romeo MD [Primary Care Provider] - 1-2 days Laron Boone DO [Doctor of Osteopathic Medicine] - 1-2 days
[2018-05-05] MEDS ORDERED: MAGNESIUM SULFATE-D5W PMX 1 GM in DEXTROSE/WATER 1 100ML.BAG IVPB ONE (03:00)
--- NOTE | 2018-05-05 03:26 | XR ---
EXAMINATION TYPE: XR chest 2V DATE OF EXAM: 05/05/2018 COMPARISON: 04/22/2018 HISTORY: Short of breath TECHNIQUE: Frontal and lateral views of the chest are obtained. FINDINGS: Heart and mediastinum are normal. Lungs are clear. Diaphragm is normal. Bony thorax appear s normal. IMPRESSION: Normal chest. No change.
[2018-05-05 04:23] LABS: Albumin 4.6 g/dL (3.5-5.0); Anion Gap 11 mmol/L; Blood Urea Nitrogen 16 mg/dL (9-20); Calcium 10.2 mg/dL (8.4-10.2); Carbon Dioxide 23 mmol/L (22-30); Chloride 104 mmol/L (98-107); Glucose 118 mg/dL (74-99); Sodium 138 mmol/L (137-145); Total Bilirubin 0.5 mg/dL (0.2-1.3); Total Protein 7.6 g/dL (6.3-8.2)
[2018-05-05 04:30] LABS: ALT 37 U/L (21-72); AST 29 U/L (17-59); Alkaline Phosphatase 50 U/L (38-126); Potassium 4.8 mmol/L (3.5-5.1)
[2018-05-05 04:50] VITALS: RESP 20
[2018-05-05 04:55] LABS: Basophils # (A) 0.1 k/uL (0-0.2); Basophils % (A) 0 %; Eosinophils % (A) 6 %; HCT 48.5 % (39.0-53.0); HGB 16.8 gm/dL (13.0-17.5); Lymphocytes # (A) 3.2 k/uL (1.0-4.8); Lymphocytes % (A) 21 %; MCH 31.1 pg (25.0-35.0); MCHC 34.6 g/dL (31.0-37.0); MCV 89.9 fL (80.0-100.0); Mean Platelet Volume 6.5; Monocytes # (A) 0.9 k/uL (0-1.0); Monocytes % (A) 6 %; Neutrophils # (A) 10.3 k/uL (1.3-7.7); Neutrophils % (A) 66 %; Platelet Count 359 k/uL (150-450); RDW 12.5 % (11.5-15.5); WBC 15.6 k/uL (3.8-10.6)
[2018-05-05 05:53] VITALS: BP 128/74; PULSE 98; TEMP 97.9
== END 2018-05-05 05:53 | disposition home or self-care (01) ==
LOC: EC 01:57
DX: J45.901 Unspecified asthma with (acute) exacerbation (principal); F32.9 Major depressive disorder, single episode, unspecified; F41.9 Anxiety disorder, unspecified; Z79.51 Long term (current) use of inhaled steroids; Z79.899 Other long term (current) drug therapy; Z91.010 Allergy to peanuts; Z91.09 Other allergy status, other than to drugs and biological substances
CPT/HCPCS: 99285; 36415; 94640 ×2; 80053; 83735; 85025; 71046; 96365; J3475

== ENCOUNTER → 2018-06-19 | Outpatient (CLI) | payer BC ==
[2018-06-20 05:34] LABS: Clam IgE <0.10 kU/L; Scallop IgE <0.10 kU/L; Shrimp IgE <0.10 kU/L; Walnut IgE (Food) <0.10 kU/L
[2018-06-20 05:35] LABS: Egg White IgE <0.10 kU/L; Soybean IgE 0.48 kU/L
[2018-06-20 05:36] LABS: Codfish IgE <0.10 kU/L
[2018-06-20 05:37] LABS: Peanut IgE 6.52 kU/L
[2018-06-20 13:41] LABS: Alt. alternata IgE Class CLASS III; Alternaria alternata IgE 5.62 kU/L (<0.35); Asperg. fumagatus IgE 1.83 kU/L (<0.35); Asperg. fumagatus IgE Class CLASS II; Bermuda Grass IgE <0.35 kU/L (<0.35); Birch(Com.Silvr) IgE <0.35 kU/L (<0.35); Birch(Com.Silvr) IgE Class CLASS 0; Cat Epith & Dander IgE Class CLASS IV; Clad herbarum IgE 1.09 kU/L (<0.35); Cockroach IgE <0.35 kU/L (<0.35); Cottonwood IgE <0.35 kU/L (<0.35); Dermato. Pteronyssinus IgE 1.65 kU/L (<0.35); Dermato. farinae IgE 1.01 kU/L (<0.35); Dermato. farinae IgE Class CLASS II; Dog Dander IgE 4.81 kU/L (<0.35); Elm IgE 0.39 kU/L (<0.35); Maple (Box Elder) IgE 0.45 kU/L (<0.35); Maple (Box Elder) IgE Class CLASS I; Mountain Cedar IgE <0.35 kU/L (<0.35); Mountain Cedar IgE Class CLASS 0; Mouse Urine IgE Class CLASS 0; Nettle IgE <0.35 kU/L (<0.35); Nettle IgE Class CLASS 0; Oak IgE <0.35 kU/L (<0.35); Penicillium notatum IgE Class CLASS I; Rough Marshelder IgE 0.36 kU/L (<0.35); Rough Marshelder IgE Class CLASS I; Timothy Grass IgE <0.35 kU/L (<0.35); White Ash IgE Class CLASS II
== END | disposition home or self-care (01) ==
LOC: LABWHC1 15:20
PROVIDERS: ATTEND Internal Medicine Critical Care Medicine
DX: R05 Cough (principal)
CPT/HCPCS: 36415; 82785; 85008; 86003

== ENCOUNTER 2018-11-18 13:57 | Emergency (ER) | payer BC ==
[2018-11-18] MEDS ORDERED: SODIUM CHLORIDE 0.9% 1,000 ML BAG ONE (14:00)
[2018-11-18] MEDS ORDERED: KETOROLAC 30 MG/ML 1 ML VIAL ONE (14:00)
[2018-11-18] MEDS ORDERED: ONDANSETRON 4 MG/2 ML VIAL ONE (14:00)
[2018-11-18] MEDS ORDERED: MORPHINE SULFATE 4 MG/ML SYRINGE ONE (14:00)
[2018-11-18 16:12] LABS: Appearance,Urine Clear (Clear); Bilirubin,Urine Negative (Negative); Blood,Urine Moderate (Negative); Color,Urine Yellow; Glucose,Urine (UA) Negative (Negative); Ketones,Urine 1+ (Negative); Leukocyte Esterase,Urine Negative (Negative); Mucus,Urine Moderate /hpf; Nitrite,Urine Negative (Negative); Protein,Urine 1+ (Negative); RBC,Urine >182 /hpf (0-5); Specific Gravity,Urine 1.028 (1.001-1.035); Sperm,Urine Rare /hpf; Urobilinogen,Urine <2.0 mg/dL (<2.0); WBC,Urine 1 /hpf (0-5)
--- NOTE | 2018-11-18 16:13 | XR ---
EXAMINATION TYPE: XR abdomen 1V DATE OF EXAM: 11/18/2018 4:09 PM CLINICAL HISTORY: Pain, fever and vomiting TECHNIQUE: Single upright image of the abdomen is obtained. COMPARISON: None. FINDINGS: Scattered gas is seen in non-distended small bowel loops. Gas and fecal material is seen in non-distended colon. There is no pneumoperitoneum, or abnormal calcification appreciated. The lung b ases are clear and the osseous structures are intact. IMPRESSION: Nonobstructive bowel gas pattern.
[2018-11-18 16:17] LABS: ALT 47 U/L (21-72); AST 33 U/L (17-59); African American GFR (CKD) >90 (>60 ml/min/1.73 sqM); Albumin 4.9 g/dL (3.5-5.0); Alkaline Phosphatase 69 U/L (38-126); Amylase 62 U/L (30-110); Anion Gap 12 mmol/L; Blood Urea Nitrogen 16 mg/dL (9-20); Calcium 10.3 mg/dL (8.4-10.2); Carbon Dioxide 21 mmol/L (22-30); Chloride 107 mmol/L (98-107); Glucose 107 mg/dL (74-99); Lipase 129 U/L (23-300); Potassium 4.2 mmol/L (3.5-5.1); Sodium 140 mmol/L (137-145); Total Bilirubin 0.5 mg/dL (0.2-1.3); Total Protein 7.5 g/dL (6.3-8.2)
[2018-11-18 16:40] LABS: Basophils # (A) 0.1 k/uL (0-0.2); Basophils % (A) 0 %; Eosinophils # (A) 0.2 k/uL (0-0.7); Eosinophils % (A) 1 %; HCT 47.8 % (39.0-53.0); HGB 15.9 gm/dL (13.0-17.5); Lymphocytes # (A) 1.6 k/uL (1.0-4.8); Lymphocytes % (A) 9 %; MCH 29.2 pg (25.0-35.0); MCHC 33.2 g/dL (31.0-37.0); MCV 87.9 fL (80.0-100.0); Mean Platelet Volume 7.3; Monocytes % (A) 6 %; Neutrophils # (A) 14.4 k/uL (1.3-7.7); Neutrophils % (A) 84 %; Platelet Count 342 k/uL (150-450); RBC 5.44 m/uL (4.30-5.90); RDW 13.6 % (11.5-15.5); WBC 17.2 k/uL (3.8-10.6)
--- NOTE | 2018-11-18 16:51 | CT ---
EXAMINATION TYPE: CT abdomen pelvis wo con DATE OF EXAM: 11/18/2018 COMPARISON: None HISTORY: Left sided pain with hematuria CT DLP: 535.4 mGycm Automated exposure control for dose reduction was used. TECHNIQUE: Helical acquisition of images was performed from the lung bases through the pelvis. FINDINGS: LUNG BASES: No significant abnormality is appreciated. LIVER/GB: No significant abnormality is appreciated. PANCREAS: No significant abnormality is seen. SPLEEN: No significant abnormality is seen. ADRENALS: No significant abnormality is seen. 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 There is mild left-sided hydronephrosis with a 2 mm calcification at the left ureteropelvic junction. There is no perirenal edematous reticulation or enlargement of the left kidney. No additional renal calcifications. Lower collecting systems and urinary bladder unremarkable. PERITONEAL CAVITY: No pneumoperitoneum or peritoneal fluid. RETROPERITONEAL ADENOPATHY: None visualized REPRODUCTIVE ORGANS: No significant abnormality is seen PELVIC ADENOPATHY: None visualized. OSSEOUS STRUCTURES: No significant abnormality is seen. BOWEL: No significant abnormality is seen. The appendix is normal in appearance. It is retrocecal an d rises cephalad from the right lower quadrant, just anterior to the right lateral conal fascia, to t he level of the lower pole right kidney. IMPRESSION: PARTIAL LEFT UPJ OBSTRUCTION SECONDARY TO 2 MM CALCIFICATION.
[2018-11-18] MEDS ORDERED: TAMSULOSIN 0.4 MG CAP.ER.24H PO STA (17:18)
[2018-11-18 17:28] VITALS: BP 110/59; PULSE 79; RESP 18
--- NOTE | 2018-11-18 17:30 | ED ---
Abdominal Pain HPI - General Stated Complaint: kidney pain/fever/vomiting Source: RN notes reviewed, old records reviewed - History of Present Illness Initial Comments: Patient is a 23 year old male with L flank pain. Chart completed on paper. - Related Data Home Medications Medication Instructions Recorded Confirmed Albuterol Sulfate [Ventolin HFA] 1 - 2 puff INHALATION RT-Q6H PRN 03/21/14 11/18/18 Albuterol Nebulized [Ventolin 2.5 mg INHALATION RT-QID PRN 10/17/15 11/18/18 Nebulized] lamoTRIgine [LaMICtal] 37.5 mg PO DAILY 04/22/18 11/18/18 Citalopram Hydrobromide [CeleXA] 60 mg PO DAILY 11/18/18 11/18/18 Fluticasone/Salmeterol [Advair 1 puff INHALATION RT-BID 11/18/18 11/18/18 500-50 Diskus] Montelukast [Singulair] 10 mg PO DAILY 11/18/18 11/18/18 Previous Rx's Medication Instructions Recorded HYDROcodone/APAP 5-325MG [[place] 1 tab PO Q6HR PRN #10 tab 11/18/18 5-325] Ketorolac [Toradol] 10 mg PO Q6HR #20 tab 11/18/18 Ondansetron Odt [Zofran Odt] 4 mg PO Q8HR PRN #12 tab 11/18/18 Tamsulosin [Flomax] 0.4 mg PO DAILY #7 cap 11/18/18 Allergies Allergy/AdvReac Type Severity Reaction Status Date / Time peanut Allergy Severe Itching Verified 11/18/18 14:46 dog dander Allergy Unknown Verified 11/18/18 14:46 Review of Systems ROS Statement: Those systems with pertinent positive or pertinent negative responses have been documented in the HPI. ROS Other: All systems not noted in ROS Statement are negative. Past Medical History Past Medical History: Asthma Additional Past Medical History / Comment(s): Very mild CP Left side History of Any Multi-Drug Resistant Organisms: None Reported Past Surgical History: Orthopedic Surgery Additional Past Surgical History / Comment(s): R knee surgery Past Anesthesia/Blood Transfusion Reactions: No Reported Reaction Past Psychological History: Anxiety, Depression Smoking Status: Never smoker Past Alcohol Use History: None Reported Past Drug Use History: None Reported - Past Family History Mother Family Medical History: Asthma Father Family Medical History: No Reported History Course Vital Signs 11/18/18 17:26 Pulse Rate 79 Respiratory 18 Rate Blood Pressure 110/59 O2 Sat by Pulse 98 Oximetry Medical Decision Making - Lab Data Result diagrams: 11/18/18 15:20 11/18/18 15:20 Lab Results 11/18/18 11/18/18 11/18/18 Range/Units 15:20 15:20 15:30 WBC 17.2 H (3.8-10.6) k/uL RBC 5.44 (4.30-5.90) m/uL Hgb 15.9 (13.0-17.5) gm/dL Hct 47.8 (39.0-53.0) % MCV 87.9 (80.0-100.0) fL MCH 29.2 (25.0-35.0) pg MCHC 33.2 (31.0-37.0) g/dL RDW 13.6 (11.5-15.5) % Plt Count 342 (150-450) k/uL Neutrophils % 84 % Lymphocytes % 9 % Monocytes % 6 % Eosinophils % 1 % Basophils % 0 % Neutrophils # 14.4 H (1.3-7.7) k/uL Lymphocytes # 1.6 (1.0-4.8) k/uL Monocytes # 1.0 (0-1.0) k/uL Eosinophils # 0.2 (0-0.7) k/uL Basophils # 0.1 (0-0.2) k/uL Sodium 140 (137-145) mmol/L Potassium 4.2 (3.5-5.1) mmol/L Chloride 107 (98-107) mmol/L Carbon Dioxide 21 L (22-30) mmol/L Anion Gap 12 mmol/L BUN 16 (9-20) mg/dL Creatinine 0.76 (0.66-1.25) mg/dL Est GFR (CKD-EPI)AfAm >90 (>60 ml/min/1.73 sqM) Est GFR (CKD-EPI)NonAf >90 (>60 ml/min/1.73 sqM) Glucose 107 H (74-99) mg/dL Calcium 10.3 H (8.4-10.2) mg/dL Total Bilirubin 0.5 (0.2-1.3) mg/dL AST 33 (17-59) U/L ALT 47 (21-72) U/L Alkaline Phosphatase 69 (38-126) U/L Total Protein 7.5 (6.3-8.2) g/dL Albumin 4.9 (3.5-5.0) g/dL Amylase 62 (30-110) U/L Lipase 129 (23-300) U/L Urine Color Yellow Urine Appearance Clear (Clear) Urine pH 8.0 (5.0-8.0) Ur Specific [place] 1.028 (1.001-1.035) Urine Protein 1+ H (Negative) Urine Glucose (UA) Negative (Negative) Urine Ketones 1+ H (Negative) Urine Blood Moderate H (Negative) Urine Nitrite Negative (Negative) Urine Bilirubin Negative (Negative) Urine Urobilinogen <2.0 (<2.0) mg/dL Ur Leukocyte Esterase Negative (Negative) Urine RBC >182 H (0-5) /hpf Urine WBC 1 (0-5) /hpf Urine Mucus Moderate H (None) /hpf Urine Sperm Rare (None) /hpf Disposition Clinical Impression: Kidney stone on left side Disposition: HOME SELF-CARE Condition: Good Instructions (If sedation given, give patient instructions): Kidney Stones (ED) Additional Instructions: Patient advised to follow-up with primary care doctor. Take medications as prescribed. Rest, remain hydrated. Prescriptions: Tamsulosin [Flomax] 0.4 mg PO DAILY #7 cap HYDROcodone/APAP 5-325MG [[place] 5-325] 1 tab PO Q6HR PRN #10 tab PRN Reason: Pain Ketorolac [Toradol] 10 mg PO Q6HR #20 tab Ondansetron Odt [Zofran Odt] 4 mg PO Q8HR PRN #12 tab PRN Reason: Pain Is patient prescribed a controlled substance at d/c from ED?: Yes When asked, does pt state using other controlled substances?: No If prescribed controlled substance>3 days was MAPS reviewed?: Prescribed <3 Days If opioid is for acute pain is fill amount 7 days or less?: Yes If Rx opioid, was Start Talking consent form obtained?: Yes Referrals: Wilbert Romeo MD [Primary Care Provider] - 1-2 days Time of Disposition: 17:30
== END 2018-11-18 17:50 | disposition home or self-care (01) ==
LOC: EC 13:57
DX: N20.1 Calculus of ureter (principal); J45.909 Unspecified asthma, uncomplicated; Z79.899 Other long term (current) drug therapy
CPT/HCPCS: 36415; 80053; 82150; 83690; 85025; 81001; 87086; 74018; 74176; 99284; 96374; 96375 ×2; 96361 ×2; J2270; J2405; J1885

== ENCOUNTER 2019-02-04 11:51 | Emergency (ER) | payer BC ==
[2019-02-04] MEDS ORDERED: IPRATROPIUM-ALBUTEROL 3 ML NEB INHALATION STA (12:20)
[2019-02-04 12:51] VITALS: PULSE 80
--- NOTE | 2019-02-04 13:54 | ED ---
General Adult HPI - General Source: patient Mode of arrival: ambulatory Limitations: no limitations <Dwain Carpenter - Last Filed: 02/04/19 15:29> <Albino Ramirez - Last Filed: 02/04/19 15:45> - General Chief complaint: Psychiatric Symptoms Stated complaint: Mental Health Time Seen by Provider: 02/04/19 12:02 - History of Present Illness Initial comments: Patient is a 23-year-old male with a history of depression is presenting to emergency Department with a chief complaint of suicidal and homicidal thoughts. Patient reports he was speaking with the psychologist social who suggested the patient go to emergency department for further management. Patient reports over the past 3 weeks multiple factors have contributed to a"" boiling point." Patient is currently on Lamictal and Celexa. Patient reports over the past day see a psychiatrist who has not been adjusting his medications properly. Mother is in the room with the patient was suggested the psychiatric symptoms are hereditary and runs in the family. Patient reports suicidal ideations with plans. Patient also reports homicidal thoughts but no plans. Patient does report mild shortness of breath and states that is due to his asthma and he typically has a morning treatment which he did not have today. At this moment patient does not report any other complaints. (Dwain Carpenter) - Related Data Home Medications Medication Instructions Recorded Confirmed Albuterol Sulfate [Ventolin HFA] 1 - 2 puff INHALATION RT-Q6H PRN 03/21/14 02/04/19 Albuterol Nebulized [Ventolin 2.5 mg INHALATION RT-QID PRN 10/17/15 02/04/19 Nebulized] Citalopram Hydrobromide [CeleXA] 60 mg PO DAILY 11/18/18 02/04/19 Fluticasone/Salmeterol [Advair 1 puff INHALATION RT-BID 11/18/18 02/04/19 500-50 Diskus] Montelukast [Singulair] 10 mg PO DAILY 11/18/18 02/04/19 lamoTRIgine [LaMICtal] 150 mg PO DAILY 02/04/19 02/04/19 Allergies Allergy/AdvReac Type Severity Reaction Status Date / Time peanut Allergy Severe Itching Verified 02/04/19 12:24 dog dander Allergy Unknown Verified 02/04/19 12:24 Review of Systems ROS Other: All systems not noted in ROS Statement are negative. <Dwain Carpenter - Last Filed: 02/04/19 15:29> ROS Other: All systems not noted in ROS Statement are negative. <Albino Ramirez - Last Filed: 02/04/19 15:45> ROS Statement: Those systems with pertinent positive or pertinent negative responses have been documented in the HPI. Past Medical History Past Medical History: Asthma Additional Past Medical History / Comment(s): Very mild CP Left side History of Any Multi-Drug Resistant Organisms: None Reported Past Surgical History: Orthopedic Surgery Additional Past Surgical History / Comment(s): R knee surgery Past Anesthesia/Blood Transfusion Reactions: No Reported Reaction Past Psychological History: Anxiety, Depression Smoking Status: Never smoker Past Alcohol Use History: Rare Past Drug Use History: None Reported - Past Family History Mother Family Medical History: Asthma Father Family Medical History: No Reported History <Dwain Carpenter - Last Filed: 02/04/19 15:29> General Exam Limitations: no limitations <Dwain Carpenter - Last Filed: 02/04/19 15:29> - General Exam Comments Initial Comments: General: Well-developed well-nourished distress HEENT: Normocephalic/atraumatic, PERLL, pharynx erythema, swallowing well, EAC no erythema, no exudates, TM clear, no cervical lymph nodes Neck: Supple, nontender, trachea midline Chest/Lungs: Normal respirations, no signs of respiratory distress clear to auscultation bilaterally, wheezing noted on right lung base. Cardiac: Regular rate and rhythm, normal S1-S2, no murmurs rubs or gallops Abdomen/GI: Soft nontender, bowel sounds equal or quadrant x4, no guarding, no rebound no CVA tenderness Musculoskeletal: Nontender, full range of motion, no edema, strength equal bilaterally Skin: Warmth, no rashes or lesions, no cyanosis or diaphoresis Neurologic: AAO x 3, CN 2-12 intact, Psychiatric: Mood and affect normal, judgment normal (Dwain Carpenter) Course Vital Signs 02/04/19 02/04/19 02/04/19 11:53 12:42 12:51 Temperature 97.8 F Pulse Rate 63 84 80 Respiratory 17 Rate Blood Pressure 108/73 O2 Sat by Pulse 98 Oximetry Medical Decision Making <Dwain Carpenter - Last Filed: 02/04/19 15:29> <Albino Ramirez - Last Filed: 02/04/19 15:45> - Medical Decision Making Patient is a 23-year-old male presenting to emergency Department with a chief complaint of suicidal and homicidal thoughts. Patient reports for the past 3 weeks has had increased thoughts of suicidal and homicidal thoughts that have come to a "boiling point". Physical examination patient wheezing noted on the right lung. Patient is an asthmatic and typically has a morning treatment. Patient given a DuoNeb treatment. On reevaluation patient does not have wheezing and is breathing better. Patient will be evaluated by the psychiatric staff. EPS cleared the patient. Patient will be transferred to another psychiatric facility. Return parameters were thoroughly discussed with mother and patient were understanding and agreeable. Case discussed with physician. (Dwain Carpenter) Patient was seen by mental health services with recommendation for admission. Patient reevaluated by myself, Dr. Ramirez. Patient resting comfortably in bed. Family is present. Patient admits to having agitation and suicidal and homicidal thoughts. Patient has vivid visualizations however states they're not hallucinations. Patient states his hygiene has been lacking recently however he is still eating and drinking. Patient admits to being off his medications for the past several days. Positive clinical certificate completed. (Albino Ramirez) Disposition Is patient prescribed a controlled substance at d/c from ED?: No Time of Disposition: 15:31 <Dwain Carpenter - Last Filed: 02/04/19 15:29> <Albino Ramirez - Last Filed: 02/04/19 15:45> Clinical Impression: Depression, Suicidal ideation Disposition: TRANSFER TO PSYCH HOSP/UNIT Condition: Stable Instructions (If sedation given, give patient instructions): Depression (DC) Additional Instructions: Patient will be transferred to a psychiatric facility for further management. Referrals: Wilbert Romeo MD [Primary Care Provider] - 1-2 days
[2019-02-04 16:27] LABS: ALT 36 U/L (21-72); AST 28 U/L (17-59); African American GFR (CKD) >90 (>60 ml/min/1.73 sqM); Albumin 4.4 g/dL (3.5-5.0); Alkaline Phosphatase 56 U/L (38-126); Anion Gap 13 mmol/L; Blood Urea Nitrogen 12 mg/dL (9-20); Calcium 9.5 mg/dL (8.4-10.2); Carbon Dioxide 23 mmol/L (22-30); Chloride 104 mmol/L (98-107); Glucose 128 mg/dL (74-99); Non-African American GFR(CKD) >90 (>60 ml/min/1.73 sqM); Potassium 4.1 mmol/L (3.5-5.1); Sodium 140 mmol/L (137-145); Total Bilirubin 0.5 mg/dL (0.2-1.3)
[2019-02-04 19:39] LABS: Amphetamine Screen,Urine Not Detected (NotDetected); Barbiturate Screen,Urine Not Detected (NotDetected); Benzodiazepines Screen,Urine Not Detected (NotDetected); Cocaine Screen,Urine Not Detected (NotDetected); Methadone Screen, Urine Not Detected (NotDetected); Opiate Screen,Urine Not Detected (NotDetected); Oxycodone Screen, Urine Not Detected (NotDetected); Phencyclidine Screen,Urine Not Detected (NotDetected); Tricyclic Antidepressant,Urine Not Detected (NotDetected); Urn Cannabinoid Scrn Not Detected (NotDetected)
[2019-02-04 23:14] VITALS: BP 112/72; RESP 18; TEMP 98
== END 2019-02-04 23:14 ==
LOC: EC 11:51
DX: F32.9 Major depressive disorder, single episode, unspecified (principal); R45.851 Suicidal ideations; R45.850 Homicidal ideations; R45.1 Restlessness and agitation; R44.3 Hallucinations, unspecified; J45.909 Unspecified asthma, uncomplicated; F41.9 Anxiety disorder, unspecified; Z98.890 Other specified postprocedural states; Z79.51 Long term (current) use of inhaled steroids; Z79.899 Other long term (current) drug therapy; Z91.010 Allergy to peanuts; Z91.048 Other nonmedicinal substance allergy status
CPT/HCPCS: 36415; 80053; 80306; 94640; 99285

== ENCOUNTER 2024-10-22 13:38 | Emergency (ER) | payer BC, OTHER ==
--- NOTE | 2024-10-22 14:51 | ED ---
Male Urogenital HPI - General Chief complaint: Urogenital Stated complaint: Groin/abd pain Time Seen by Provider: 10/22/24 14:50 Source: patient Mode of arrival: ambulatory Limitations: no limitations - History of Present Illness Initial comments: 29-year-old male with no reported past medical history presenting to the ER for evaluation of suprapubic abdominal pain. Patient reports for the past 4 days he has been having his suprapubic/pelvic pressure. He also noticed today hematuria. He states it looks "black". He is not on blood thinners. Patient reports the pain is a sharp pain that does worsen with fluid intake. He is currently rating his discomfort a 3 out of 10. He has not taken any medications for his current symptoms. He denies any nausea or vomiting. He also admits to intermittent diarrhea but denies any hematochezia or melena. No history of ulcerative colitis, Crohn's disease or diverticulitis. No prior abdominal surgeries. Denies fevers or chills. Patient states he has possibly been diagnosed with a kidney stone in the past but he has never "passed 1" before. He denies any penile discharge, scrotal pain/swelling, or concern of STDs. No pain with deification or participation in anal intercourse. No other complaints. - Related Data Home Medications Medication Instructions Recorded Confirmed Albuterol Sulfate [Ventolin HFA] 1 - 2 puff INHALATION RT-Q6H PRN 03/21/14 02/04/19 Albuterol Nebulized [Ventolin 2.5 mg INHALATION RT-QID PRN 10/17/15 02/04/19 Nebulized] Citalopram Hydrobromide [CeleXA] 60 mg PO DAILY 11/18/18 02/04/19 Fluticasone Propion/Salmeterol 1 puff INHALATION RT-BID 11/18/18 02/04/19 [Advair 500-50 Diskus] Montelukast [Singulair] 10 mg PO DAILY 11/18/18 02/04/19 lamoTRIgine [LaMICtal] 150 mg PO DAILY 02/04/19 02/04/19 Previous Rx's Medication Instructions Recorded Cephalexin [Keflex] 500 mg PO Q6HR #40 cap 10/22/24 Allergies Allergy/AdvReac Type Severity Reaction Status Date / Time peanut Allergy Severe Itching Verified 02/04/19 12:24 dog dander Allergy Unknown Verified 02/04/19 12:24 Review of Systems ROS Statement: Those systems with pertinent positive or pertinent negative responses have been documented in the HPI. ROS Other: All systems not noted in ROS Statement are negative. Past Medical History Past Medical History: Asthma Additional Past Medical History / Comment(s): Very mild CP Left side History of Any Multi-Drug Resistant Organisms: None Reported Past Surgical History: Orthopedic Surgery Additional Past Surgical History / Comment(s): R knee surgery Past Anesthesia/Blood Transfusion Reactions: No Reported Reaction Past Psychological History: Anxiety, Depression Past Alcohol Use History: Rare Past Drug Use History: None Reported - Past Family History Mother Family Medical History: Asthma Father Family Medical History: No Reported History General Exam Limitations: no limitations General appearance: alert, in no apparent distress Respiratory exam: Present: normal lung sounds bilaterally. Absent: respiratory distress, wheezes, rales, rhonchi, stridor Cardiovascular Exam: Present: regular rate, normal rhythm, normal heart sounds. Absent: systolic murmur, diastolic murmur, rubs, gallop, clicks GI/Abdominal exam: Present: soft, tenderness (RLQ), normal bowel sounds Extremities exam: Present: normal inspection, full ROM, normal capillary refill. Absent: tenderness, pedal edema, joint swelling, calf tenderness Neurological exam: Present: alert, oriented X3, CN II-XII intact Skin exam: Present: warm, dry, intact, normal color. Absent: rash Course Vital Signs 10/22/24 10/22/24 14:09 19:19 Temperature 98.1 F 98.5 F Pulse Rate 63 89 Respiratory 16 18 Rate Blood Pressure 122/76 115/68 O2 Sat by Pulse 97 97 Oximetry Medical Decision Making - Medical Decision Making Was pt. sent in by a medical professional or institution (, PA, TISSUE TECHNICIAN, urgent care, hospital, or correction...) When possible be specific @ -[No] Did you speak to anyone other than the patient for history (EMS, parent, family, police, friend...)? What history was obtained from this source @ -[No] Did you review nursing and triage notes (agree or disagree)? Why? @ -[I reviewed and agree with nursing and triage notes] Were old charts reviewed (outside hosp., previous admission, EMS record, old EKG, old radiological studies, urgent care reports/EKG's, correction records)? Report findings @ -[No old charts were reviewed] Differential Diagnosis (chest pain, altered mental status, abdominal pain women, abdominal pain men, vaginal bleeding, weakness, fever, dyspnea, syncope, headache, dizziness, GI bleed, back pain, seizure, CVA, palpatations, mental health, musculoskeletal)? @ -[Differential Abdominal Pain Men:Appendicitis, cholecystitis, diverticulosis, ischemic bowel, pancreatitis, hepatitis, UTI, gastroenteritis, AAA, incarcerated hernia, bowel obstruction, constipation, inflammatory bowel, hepatitis, peptic ulcer disease, splenic infarction, perforated viscus, testicular torsion, this is not meant to be an all-inclusive list EKG interpreted by me (3pts min.). @ -[As above] X-rays interpreted by me (1pt min.). @ -[None done] CT interpreted by me (1pt min.). @ -[None done] U/S interpreted by me (1pt. min.). @ -[None done] What testing was considered but not performed or refused? (CT, X-rays, U/S, labs)? Why? @ -[None] What meds were considered but not given or refused? Why? @ -[None] Did you discuss the management of the patient with other professionals (nayana sam i.eZee Last, PA, TISSUE TECHNICIAN, lab, RT, psych nurse, social media content manager, solar energy installation manager, teacher, combat information center officer, hospice case manager)? Give summary @ -[No] Was smoking cessation discussed for >3mins.? @ -[No] Was critical care preformed (if so, how long)? @ -[No] Were there social determinants of health that impacted care today? How? (Homelessness, low income, unemployed, alcoholism, drug addiction, transportation, low edu. Level, literacy, decrease access to med. care, detention, rehab)? @ -[No] Was there de-escalation of care discussed even if they declined (Discuss DNR or withdrawal of care, Hospice)? DNR status @ -[No] What co-morbidities impacted this encounter? (DM, HTN, Smoking, COPD, CAD, Cancer, CVA, ARF, Chemo, Hep., AIDS, mental health diagnosis, sleep apnea, morbid obesity)? @ -[None] Was patient admitted / discharged? Hospital course, mention meds given and route, prescriptions, significant lab abnormalities, going to OR and other pertinent info. @ -[hospital course] Undiagnosed new problem with uncertain prognosis? @ -[No] Drug Therapy requiring intensive monitoring for toxicity (Heparin, Nitro, Insulin, Cardizem)? @ -[No] Were any procedures done? @ -[No] Diagnosis/symptom? @ -[default] Acute, or Chronic, or Acute on Chronic? @ -[default] Uncomplicated (without systemic symptoms) or Complicated (systemic symptoms)? @ -[default] Side effects of treatment? @ -[No] Exacerbation, Progression, or Severe Exacerbation? @ -[No] Poses a threat to life or bodily function? How? (Chest pain, [place], [place], pneumonia, PE, COPD, DKA, ARF, appy, cholecystitis, CVA, Diverticulitis, Homicidal, Suicidal, threat to staff... and all critical care pts) @ -[No] - Lab Data Result diagrams: 10/22/24 14:57 10/22/24 14:57 Lab Results 10/22/24 10/22/24 10/22/24 Range/Units 14:57 14:57 14:57 WBC 7.15 (4.50-10.00) 10*3/uL RBC 5.24 (4.40-5.60) 10*6/uL Hgb 16.7 (13.0-17.0) g/dL Hct 46.5 (39.6-50.0) % MCV 88.7 (80.0-97.0) fL MCH 31.9 (27.0-32.0) pg MCHC 35.9 (32.0-37.0) g/dL Plt Count 332 (140-440) 10*3/uL MPV 8.9 L (9.5-12.2) fL Immature Gran % (Auto) 0.3 % Neutrophils % 54.6 % Lymphocytes % 28.1 % Monocytes % 9.7 % Eosinophils % 6.0 % Basophils % 1.3 % Immature Gran # 0.02 (0.00-0.04) 10*3/uL Neutrophils # 3.91 (1.80-7.70) 10*3/uL Lymphocytes # 2.01 (0.90-5.00) 10*3/uL Monocytes # 0.69 (0.20-1.00) 10*3/uL Eosinophils # 0.43 H (0.04-0.35) 10*3/uL Basophils # 0.09 (0.00-0.10) 10*3/uL Sodium 138 (137-145) mmol/L Potassium 4.3 (3.5-5.1) mmol/L Chloride 102 (98-107) mmol/L Carbon Dioxide 23 (22-30) mmol/L Anion Gap 13 mmol/L BUN 14 (9-20) mg/dL Creatinine 0.84 (0.66-1.25) mg/dL Est GFR (CKD-EPI)AfAm >90 (>60 ml/min/1.73 sqM) Est GFR (CKD-EPI)NonAf >90 (>60 ml/min/1.73 sqM) Glucose 94 (74-99) mg/dL Plasma Lactic Acid [place] 1.3 (0.7-2.0) mmol/L Calcium 9.8 (8.4-10.2) mg/dL Total Bilirubin 0.9 (0.2-1.3) mg/dL AST 30 (17-59) U/L ALT 34 (4-49) U/L Alkaline Phosphatase 53 (38-126) U/L Total Protein 7.3 (6.3-8.2) g/dL Albumin 4.6 (3.5-5.0) g/dL Urine Color Urine Appearance (Clear) Urine pH (5.0-8.0) Ur Specific [place] (1.001-1.035) Urine Protein (Negative) Urine Glucose (UA) (Negative) Urine Ketones (Negative) Urine Blood (Negative) Urine Nitrite (Negative) Urine Bilirubin (Negative) Urine Urobilinogen (<2.0) mg/dL Ur Leukocyte Esterase (Negative) Urine RBC (0-5) /hpf Urine WBC (0-5) /hpf Urine Mucus (None) /hpf 10/22/24 Range/Units 16:53 WBC (4.50-10.00) 10*3/uL RBC (4.40-5.60) 10*6/uL Hgb (13.0-17.0) g/dL Hct (39.6-50.0) % MCV (80.0-97.0) fL MCH (27.0-32.0) pg MCHC (32.0-37.0) g/dL Plt Count (140-440) 10*3/uL MPV (9.5-12.2) fL Immature Gran % (Auto) % Neutrophils % % Lymphocytes % % Monocytes % % Eosinophils % % Basophils % % Immature Gran # (0.00-0.04) 10*3/uL Neutrophils # (1.80-7.70) 10*3/uL Lymphocytes # (0.90-5.00) 10*3/uL Monocytes # (0.20-1.00) 10*3/uL Eosinophils # (0.04-0.35) 10*3/uL Basophils # (0.00-0.10) 10*3/uL Sodium (137-145) mmol/L Potassium (3.5-5.1) mmol/L Chloride (98-107) mmol/L Carbon Dioxide (22-30) mmol/L Anion Gap mmol/L BUN (9-20) mg/dL Creatinine (0.66-1.25) mg/dL Est GFR (CKD-EPI)AfAm (>60 ml/min/1.73 sqM) Est GFR (CKD-EPI)NonAf (>60 ml/min/1.73 sqM) Glucose (74-99) mg/dL Plasma Lactic Acid [place] (0.7-2.0) mmol/L Calcium (8.4-10.2) mg/dL Total Bilirubin (0.2-1.3) mg/dL AST (17-59) U/L ALT (4-49) U/L Alkaline Phosphatase (38-126) U/L Total Protein (6.3-8.2) g/dL Albumin (3.5-5.0) g/dL Urine Color Light Red Urine Appearance Cloudy (Clear) Urine pH 6.5 (5.0-8.0) Ur Specific [place] 1.020 (1.001-1.035) Urine Protein Trace H (Negative) Urine Glucose (UA) Negative (Negative) Urine Ketones Negative (Negative) Urine Blood Large H (Negative) Urine Nitrite Negative (Negative) Urine Bilirubin Negative (Negative) Urine Urobilinogen <2.0 (<2.0) mg/dL Ur Leukocyte Esterase Negative (Negative) Urine RBC >182 H (0-5) /hpf Urine WBC 50 H (0-5) /hpf Urine Mucus Rare H (None) /hpf Disposition Clinical Impression: UTI (urinary tract infection) Disposition: HOME SELF-CARE Condition: Stable Instructions (If sedation given, give patient instructions): Urinary Tract Infection in Men (ED) Additional Instructions: Follow-up with urology. Take kelfex as prescribed. Return to the ER for any new or worsening symptoms. Prescriptions: Cephalexin [Keflex] 500 mg PO Q6HR #40 cap Is patient prescribed a controlled substance at d/c from ED?: No Referrals: None,Stated [Primary Care Provider] - 1-2 days Khris Dixon MD [STAFF PHYSICIAN] - 1-2 days Forms: Area PCPs Time of Disposition: 19:30
[2024-10-22 15:14] LABS: Basophils # (A) 0.09 10*3/uL (0.00-0.10); Basophils % (A) 1.3 %; Eosinophils # (A) 0.43 10*3/uL (0.04-0.35); HCT 46.5 % (39.6-50.0); HGB 16.7 g/dL (13.0-17.0); Lymphocytes # (A) 2.01 10*3/uL (0.90-5.00); Lymphocytes % (A) 28.1 %; MCH 31.9 pg (27.0-32.0); MCHC 35.9 g/dL (32.0-37.0); MCV 88.7 fL (80.0-97.0); Mean Platelet Volume 8.9 fL (9.5-12.2); Monocytes # (A) 0.69 10*3/uL (0.20-1.00); Monocytes % (A) 9.7 %; Neutrophils # (A) 3.91 10*3/uL (1.80-7.70); Neutrophils % (A) 54.6 %; Platelet Count 332 10*3/uL (140-440); RBC 5.24 10*6/uL (4.40-5.60); RDW 11.8 % (11.5-14.5); WBC 7.15 10*3/uL (4.50-10.00)
[2024-10-22 15:43] LABS: ALT 34 U/L (4-49); AST 30 U/L (17-59); African American GFR (CKD) >90 (>60 ml/min/1.73 sqM); Albumin 4.6 g/dL (3.5-5.0); Alkaline Phosphatase 53 U/L (38-126); Anion Gap 13 mmol/L; Blood Urea Nitrogen 14 mg/dL (9-20); Calcium 9.8 mg/dL (8.4-10.2); Carbon Dioxide 23 mmol/L (22-30); Chloride 102 mmol/L (98-107); Glucose 94 mg/dL (74-99); Non-African American GFR(CKD) >90 (>60 ml/min/1.73 sqM); Potassium 4.3 mmol/L (3.5-5.1); Sodium 138 mmol/L (137-145); Total Bilirubin 0.9 mg/dL (0.2-1.3); Total Protein 7.3 g/dL (6.3-8.2)
[2024-10-22] MEDS: SODIUM CHLORIDE 0.9% 1,000 ML IV ONE (16:50)
[2024-10-22 17:29] LABS: Appearance,Urine Cloudy (Clear); Bilirubin,Urine Negative (Negative); Blood,Urine Large (Negative); Color,Urine Light Red; Glucose,Urine (UA) Negative (Negative); Ketones,Urine Negative (Negative); Leukocyte Esterase,Urine Negative (Negative); Mucus,Urine Rare /hpf; Nitrite,Urine Negative (Negative); PH, Urine 6.5 (5.0-8.0); Protein,Urine Trace (Negative); RBC,Urine >182 /hpf (0-5); Urobilinogen,Urine <2.0 mg/dL (<2.0); WBC,Urine 50 /hpf (0-5)
--- NOTE | 2024-10-22 19:15 | CT ---
EXAMINATION TYPE: CT abdomen pelvis wo con DATE OF EXAM: 10/22/2024 6:25 PM COMPARISON: None. CLINICAL INDICATION: Male, 29 years old with history of hematuria RLQ abd pain, flank pain, hematuria TECHNIQUE: Axial images were obtained from above the diaphragm to the pubic rami in the axial plane a t 5 mm thick sections. Reconstructed images are reviewed on the computer in the coronal plane. CONTRAST: mL of . Study performed without Oral Contrast DLP: 655 mGycm, Automated exposure control for dose reduction was used. FINDINGS: Limited CT sections are obtained the lung bases. The lung bases are clear. CT ABDOMEN: Liver: Normal Spleen: Normal Pancreas: Normal Adrenal glands: The adrenal glands are normal. Gallbladder: Normal Kidneys: No masses are evident. No hydronephrosis is present. No cysts are present. No renal stone s are evident. Aorta: Normal Inferior vena cava: Normal. CT PELVIS: Loops of bowel within the abdomen and pelvis are normal. This study is without oral contrast caus ing some limitation in evaluation. Fecal debris is within the colon. Appendix: Normal as visualized. No dilated tubular structure or inflammatory changes around the appen haylee. Urinary bladder: Normal. Genitourinary structures: Prostate is normal Osseous structures: No suspicious lytic or sclerotic lesions. IMPRESSION: 1. No suspicious abnormality account for flank pain or hematuria [facility], Workstation: [facility], 10/22/2024 7:13 PM
[2024-10-22 19:21] VITALS: BP 115/68; PULSE 89; RESP 18; TEMP 98.5
== END 2024-10-22 20:00 | disposition home or self-care (01) ==
LOC: EC 13:38
DX: N39.0 Urinary tract infection, site not specified (principal); Z91.010 Allergy to peanuts; Z88.8 Allergy status to other drugs, medicaments and biological substances
CPT/HCPCS: 36415; 74176; 80053; 81001; 83605; 85025; 87086; 96360; 96361; 99284